=== PATIENT | female | born 1945 | race Caucasian/White ===

== ENCOUNTER → 2017-01-08 | Outpatient (CLI) | payer MEDICARE ==
[2013-12-14 11:04] VITALS: BP 141/65
[~2017-01-08] MED LIST: ALPR0.25 PO; AMLO10TA2 PO; AMLO10TA4 PO; ANAS1TAB3 PO; ASPI-630 PO; CALC-112 PO; CRESTOR10 MG PO; KRIL1CAP6 PO; LEVO112T4 PO; LEVO125T5 PO; LEVO137T3 PO; LISI10TA2 PO; METO-269 PO; METO50TA2 PO; SPIR100T PO; SPIR100T2 PO; TICA90TA PO; UBID100C26 PO; VITA400C36 PO
--- NOTE | 2017-01-08 12:44 | RAD ---
APPROVED REPORT Patient Location: OUT-PATIENT Indications PAD VELOCITY AND DOPPLER WAVEFORM ANALYSIS RIGHT cm/secWaveformSeverity LEFT c m/secWaveformSeverity Ext Iliac Art. 163.0BiphasicExt Iliac Art. 162.0Biphasic pCFA 137.0BiphasicpCFA 140.0Biphasic dCFA 113.0BiphasicdCFA 144.0Biphasic Prof Fem Art. 91.0BiphasicProf Fem Art. 94.0Biphasic Fem Art Prox. 103.0BiphasicFem Art Prox. 148.0Biphasic Fem Art Mid. 114.0BiphasicFem Art Mid. 123.0Biphasic Fem Art Dist. 116.0BiphasicFem Art Dist. 121.0Biphasic Pop Art(AK) 83.0BiphasicPop Art(AK) 101.0Biphasic Pop Art(BK) 130.0BiphasicPop Art(BK) 82.0Biphasic CASINO CAGE MANAGER Prox. 98.0BiphasicPTA Prox. 93.0Biphasic CASINO CAGE MANAGER Dist. 114.0BiphasicPTA Dist. 79.0Biphasic Per Art Mid. 70.0BiphasicPer Art Mid. 66.0Biphasic APOLLO Prox. 69.0BiphasicATA Prox. 75.0Biphasic Findings On the right side extending from the iliac vessels to the popliteal segments there are biphasic wavef orms on the spectral tracings. Velocities are grossly normal and no elevation or deceleration is note d to suggest significant stenosis. The below-knee vessels are patent with three-vessel runoff and bip hasic waveforms. On the left side extending from the iliac vessels to the popliteal segments there biphasic waveforms on the spectral tracings. Velocities again are grossly normal and no acceleration or deceleration is noted to suggest significant stenosis. The below-knee vessels are again patent with three-vessel runo ff and biphasic waveforms. Critical Notification Critical Value: No <Conclusion> 1. No flow-limiting disease in the bilateral lower extremity arterial system.
--- NOTE | 2017-01-08 13:24 | CARD ---
APPROVED REPORT EXAM: Two-dimensional and M-mode echocardiogram with Doppler and color Doppler. Other Information Quality : GoodHR: 50bpm Rhythm : Bradycardia INDICATION Cardiac Disease: CAD 2D DIMENSIONS RVDd3.2 (2.9-3.5cm)Left Atrium(2D)4.1 (1.6-4.0cm) IVSd1.1 (0.7-1.1cm)Aortic Root(2D)3.0 (2.0-3.7cm) LVDd4.6 (3.9-5.9cm)LVOT Diameter2.1 (1.8-2.4cm) PWd1.3 (0.7-1.1cm)LVDs2.8 (2.5-4.0cm) FS (%) 38.9 %SV65.8 ml LVEF(%)69.3 (>50%) Aortic Valve AoV Peak Jose Rafael.249.5cm/sAoV VTI66.4cm AO Peak GR.24.9mmHgLVOT Peak Jose Rafael.99.6cm/s AO Mean GR.13mmHgAVA (VMAX)1.43cm2 Mitral Valve MV E Mjxuoken525.1cm/sMV E Peak Gr.6mmHg MV DECEL JVMW146giYX A Tsepulue010.0cm/s MV E Mean Gr.2mmHgE/A Ratio0.9 MV A Xsairfxq080th Pulmonary Valve PV Peak Ahtwirog692.3cm/s Tricuspid Valve TR P. Wiikqxhg818cm/sTR Peak Gr.44mmHg Pulmonary Vein S1 Dbhzrdnm75.6cm/sD2 Rcjukpox68.5cm/s PVa dimpvpvj91irkb LEFT VENTRICLE The left ventricle is normal size. There is mild concentric left ventricular hypertrophy. The left ve ntricular systolic function is normal. The Ejection Fraction is 65-70%. There is normal LV segmental wall motion. Transmitral Doppler flow pattern is Grade I-abnormal relaxation pattern. RIGHT VENTRICLE The right ventricle is normal size. There is normal right ventricular wall thickness. The right ventr icular systolic function is normal. ATRIA The left atrium is moderately dilated. The right atrium size is normal. The interatrial septum is int act with no evidence for an atrial septal defect or patent foramen ovale as noted on 2-D or Doppler i yuliya. AORTIC VALVE The aortic valve is mildly sclerotic. The aortic valve is trileaflet. Doppler and Color Flow revealed no significant aortic regurgitation. There is no significant aortic valvular stenosis. MITRAL VALVE Mitral annular calcification is moderate. The mitral valve leaflets are thickened. There is no eviden ce of mitral valve prolapse. There is no mitral valve stenosis. Doppler and Color Flow revealed mild mitral regurgitation. TRICUSPID VALVE Doppler and Color Flow revealed mild tricuspid regurgitation. The pulmonary artery systolic pressure is estimated at 48 mmHg. There is moderate pulmonary hypertension. PULMONIC VALVE The pulmonary valve is not well visualized but appears to opens well. Doppler and Color Flow revealed no pulmonic valvular regurgitation. There is no pulmonic valvular stenosis by spectral Doppler. GREAT VESSELS The aortic root is normal in size. The ascending aorta is normal in size. The pulmonary artery is nor mal. The IVC is normal in size and collapses >50% with inspiration. PERICARDIAL EFFUSION There is no evidence of significant pericardial effusion. Critical Notification Critical Value: No <Conclusion> The left ventricular systolic function is normal. The Ejection Fraction is 65-70%. There is normal LV segmental wall motion. Mild mitral regurgitation. Mild tricuspid regurgitation. The pulmonary artery systolic pressure is estimated at 48 mmHg. There is moderate pulmonary hypertension. There is no evidence of significant pericardial effusion.
== END | disposition home or self-care (01) ==
LOC: ECHO 10:52
PROVIDERS: ATTEND Internal Medicine Cardiovascular Disease
DX: I08.1 Rheumatic disorders of both mitral and tricuspid valves (principal); I27.2 Other secondary pulmonary hypertension
CPT/HCPCS: 93306; 93925

== ENCOUNTER → 2017-07-27 | Outpatient (CLI) | payer MEDICARE ==
[2017-07-27] MEDS: REGADENOSON 0.4 MG/5 ML DISP.SYRIN. IV (10:25)
== END | disposition home or self-care (01) ==
LOC: NM 08:34
DX: I25.10 Atherosclerotic heart disease of native coronary artery without angina pectoris (principal); I10 Essential (primary) hypertension; Z79.01 Long term (current) use of anticoagulants; Z85.3 Personal history of malignant neoplasm of breast
CPT/HCPCS: 78452; 93017; 96374; 96375; 96376; A9500; J2785

== ENCOUNTER → 2017-11-13 | Outpatient (CLI) | payer MEDICARE | END | disposition home or self-care (01) | LOC: KCIC MRI 13:38 | DX: M51.36 Other intervertebral disc degeneration, lumbar region (principal); M48.061 Spinal stenosis, lumbar region without neurogenic claudication | CPT/HCPCS: 72148 ==

== ENCOUNTER → 2018-07-14 | Outpatient (CLI) | payer MEDICARE ==
[2013-12-14 11:04] VITALS: BP 141/65
[~2018-07-14] MED LIST changes: -AMLO10TA2 PO; +AMLO10TA8 PO; -ANAS1TAB3 PO; +ANAS1TAB47 PO; +CLOP75TA57 PO; -METO50TA2 PO; +METO50TA6 PO; -SPIR100T2 PO; +SPIR100T4 PO
[2018-07-14 09:57] LABS: CHOLESTEROL/HDL RATIO 3.1
== END | disposition home or self-care (01) ==
LOC: LAB 09:03
PROVIDERS: ATTEND Internal Medicine Cardiovascular Disease
DX: E78.5 Hyperlipidemia, unspecified (principal)
CPT/HCPCS: 36415; 80061

== ENCOUNTER → 2018-07-15 | Outpatient (CLI) | payer MEDICARE ==
[2013-12-14 11:04] VITALS: BP 141/65
--- NOTE | 2018-07-15 09:56 | CARD ---
MR#: [id number] Date of Study: 07/15/2018 Ordering Physician: RIVER TORRES, Referring Physician: RIVER TORRES Tech: Ludmila Padilla RDCS APPROVED REPORT EXAM: Two-dimensional and M-mode echocardiogram with Doppler and color Doppler. Other Information Quality : AverageHR: 55bpm Rhythm : NSR INDICATION CAD 2D DIMENSIONS RVDd4.0 (2.9-3.5cm)Left Atrium(2D)4.5 (1.6-4.0cm) IVSd1.2 (0.7-1.1cm)Aortic Root(2D)2.4 (2.0-3.7cm) LVDd3.0 (3.9-5.9cm)LVOT Diameter1.9 (1.8-2.4cm) PWd1.4 (0.7-1.1cm)LVDs2.1 (2.5-4.0cm) FS (%) 29.3 %SV20.2 ml LVEF(%)57.7 (>50%) M-Mode DIMENSIONS Left Atrium(MM)4.33 (2.5-4.0cm)Aortic Root3.03 (2.2-3.7cm) Aortic Valve AoV Peak Jose Rafael.242.3cm/sAoV VTI69.2cm AO Peak GR.23.5mmHgLVOT Peak Jose Rafael.88.0cm/s AO Mean GR.15mmHgAVA (VMAX)1.07cm2 NAMITA (VTI)1.10cm2 Mitral Valve MV E Lnfkvjgr190.8cm/sMV E Peak Gr.8mmHg MV DECEL KZNT221iqII A Giqekgkd552.1cm/s MV E Mean Gr.2mmHgE/A Ratio1.1 MV A Mfllcpxk654cs Pulmonary Valve PV Peak Zneimcpm65.6cm/s Tricuspid Valve TR P. Pjvmniza347so/sRAP EAXXDGAE2evZm TR Peak Gr.60fzPyVHYB82vhTa LEFT VENTRICLE The left ventricle cavity is small. There is mild concentric left ventricular hypertrophy. The left v entricular systolic function is normal and the ejection fraction is within normal range. The Ejection Fraction is 55-60%. There is normal LV segmental wall motion. Transmitral Doppler flow pattern is Gr fatuma II-pseudonormal filling dynamics. RIGHT VENTRICLE The right ventricle is mildly dilated. There is normal right ventricular wall thickness. The right ve ntricular systolic function is normal. ATRIA The left atrium is mildly dilated. The right atrium is mildly dilated. The interatrial septum is inta ct with no evidence for an atrial septal defect or patent foramen ovale as noted on 2-D or Doppler im aging. AORTIC VALVE The aortic valve is trileaflet. The aortic valve is moderately calcified. Doppler and Color Flow reve aled no significant aortic regurgitation. There is mild aortic stenosis. MG 15 mm Hg. MITRAL VALVE Mitral annular calcification is moderate. There is no evidence of mitral valve prolapse. Calculated m itral valve area is 1.6 cm2 with maximum pressure gradient of 9 mmHg and mean pressure gradient of 2. 6 mmHg. Doppler and Color-flow revealed trace mitral regurgitation. TRICUSPID VALVE The tricuspid valve is normal in structure and function. Doppler and Color Flow revealed mild to mode rate tricuspid regurgitation. There is moderate pulmonary hypertension. The PA pressure was estimated at 50 mmHg. There is no tricuspid valve prolapse or vegetation. There is no tricuspid valve stenosis . PULMONIC VALVE Pulmonic valve not well visualized. GREAT VESSELS The aortic root is normal in size. The ascending aorta is normal in size. The IVC is normal in size a nd collapses >50% with inspiration. PERICARDIAL EFFUSION There is no evidence of significant pericardial effusion. Critical Notification Critical Value: No <Conclusion> The left ventricular systolic function is normal and the ejection fraction is within normal range. Th e Ejection Fraction is 55-60%. There is normal LV segmental wall motion. There is mild aortic stenosis. MG 15 mm Hg. Doppler and Color Flow revealed mild to moderate tricuspid regurgitation. There is moderate pulmonary hypertension. The PA pressure was estimated at 50 mmHg. Signed by : Jose A Hunt, Electronically Approved : 07/15/2018 09:56:16
--- NOTE | 2018-07-15 14:02 | RAD ---
MR#: [id number] Date of Study: 07/15/2018 Ordering Physician: RIVER TORRES, Referring Physician: RIVER TORRES, Tech: APPROVED REPORT Patient Location: OUT-PATIENT Indications PAD VELOCITY AND DOPPLER WAVEFORM ANALYSIS RIGHT cm/secWaveformSeverity LEFT cm/secWaveform Severity pCFA 193.2BiphasicpCFA 157.8Biphasic Prof Fem Art. 101.8BiphasicProf Fem Art. 101.2Biphasic Fem Art Prox. 111.1BiphasicFem Art Prox. 137.9Biphasic Fem Art Mid. 102.7BiphasicFem Art Mid. 96.2Biphasic Fem Art Dist. 137.9BiphasicFem Art Dist. 121.2Biphasic Pop Art(Fossa) 86.1BiphasicPop Art(AK) 113.8Biphasic APARTMENT MAINTENANCE TECHNICIAN Dist. 108.3BiphasicPTA Dist. 86.1Biphasic Per Art Dist.63.6BiphasicPer Art Dist.84.2Biphasic APOLLO Dist. 69.4BiphasicATA Dist. 66.6Biphasic Findings Mild bilateral FURNITURE DECALS INSPECTOR velocity increase, likely less than 50% stenosis. Mostly biphasic waveforms throughout the arterial tree in the LE. Three vessel run-off below the knee. No focal stenosis. Critical Notification Critical Value: No <Conclusion> No focal stenosis noted. Signed by : Jose A Hunt, Electronically Approved : 07/15/2018 14:02:17
== END | disposition home or self-care (01) ==
LOC: ECHO 08:51
PROVIDERS: ATTEND Internal Medicine Cardiovascular Disease
DX: I25.10 Atherosclerotic heart disease of native coronary artery without angina pectoris (principal); I08.2 Rheumatic disorders of both aortic and tricuspid valves; I27.20 Pulmonary hypertension, unspecified
CPT/HCPCS: 93306; 93925

== ENCOUNTER → 2018-08-10 | Outpatient (CLI) | payer MEDICARE ==
[2013-12-14 11:04] VITALS: BP 141/65
[~2018-08-10] MED LIST changes: +REGADENOSON 0.4 MG/5 ML DISP.SYRIN. IV ONE
--- NOTE | 2018-08-10 12:58 | RAD ---
MR#: [id number] Date of Study: 08/10/2018 Ordering Physician: RIVER TORRES, Referring Physician: MARTY PAYTON Tech: KERI Priest APPROVED REPORT Test Type: Pharmacological Stress Nurse/Tech: Sol Dalton R.N. Test Indications: CAD, SOA Cardiac History: [place], PTCA,htn Medications: See Electronic Medical Record Medical History: See Electronic Medical Record Resting ECG: SB . has very flat T waves and even inverted T wave in leads III,AVF,V3,V4 Resting Heart Rate: 50 bpm Resting Blood Pressure: 149/64mmHg Pretest Chest Pain: No chest pain Nurse/Tech Notes S1S2, murmur, lungs CTA Consent: The procedure was explained to the patient in lay terms. Informed consent was witnessed. Juan eout was entered into [employer]-SIM. History and Stress Test performed by KRISTOPHER Lopez, KAREN (R) (N) Pharm. Details Pharmacologic stress testing was performed using 0.4mg per 5ml of regadenoson given intravenously ove r 7-10 seconds. Stress Symptoms SOA, stomach cramps, h/a POST EXERCISE Reason for Termination: Infusion complete Max HR: 70 bpm Max Blood Pressure: 151/60mmHg Blood Pressure response to exercise: Normal blood pressure response during stress. Heart Rate response to exercise: wnl Chest Pain: No. Arrhythmia: No. ST Change: No. INTERPRETATION Stress EKG Conclusion: Baseline EKG showed sinus rhythm. No ischemic changes at peak stress. No arr hythmias. Imaging Protocol IMAGE PROTOCOL: Rest Tc-99m/stress Tc-99m 1 day Rest: Stress: Viability: Radiopharm.Tc99m DcvjbipyoOz29c Sestamibi Oiic75uBa 33mCi Duration 16min. 13min. Img Date 08/10/2018 08/10/2018 Inj-Img Orxy18fwk. 60min. Rest Admin Site:IV - Left AntecubitalAdministrator:KRISTOPHER Lopez, KAREN (R)(N) Stress Admin Site: IV - Left AntecubitalAdministrator: Adrienne Mcguire, NMTCB, ARRT (R)(N) STRESS DATA End Diast. Vol.96.0mlLVEDV index BSA52.0ml End Syst. Vol.23.0mlLVESV index BSA12.0ml Myocardial Swcj506.0gEject. Wxjoddcq33.0% Stress Scores Regional WT0.00Summed WT7.00 Regional WM0.00Summed WM0.00 Study quality was good. Left Ventricular size was Normal at Rest and Stress. Lung uptake was . Left Ventricular ejection fraction is 76%. The rest and stress images show normal perfusion, normal contraction and thickening. LV Perf. Quant 17 Seg. SSS1.00 17 Seg. SRS1.00 17 Seg. SDS1.00 Stress Defect Extent (% LAD)2.50Rest Defect Extent (% LAD)5.60Rev. Defect Extent (% LAD)0.00 Stress Defect Extent (% LCX) 0.00Rest Defect Extent (% LCX)0.00Rev. Defect Extent (% LCX)0.00 Stress Defect Extent (% RCA)0.00Rest Defect Extent (% RCA)0.00Rev. Defect Extent (% RCA)0.00 Stress Defect Extent (% DENI)1.50Rest Defect Extent (% DENI)3.30Rev. Defect Extent (% DENI)0.00 Conclusion 1. Regadenoson cardioisotope stress test did not show any evidence of ischemia or infarct. 2. Normal left ventricular systolic function with ejection fraction calculated at 76%. 3. Low risk for cardiac events. Signed by : River Torres, Electronically Approved : 08/10/2018 12:57:54
== END | disposition home or self-care (01) ==
LOC: NM 09:12
PROVIDERS: ATTEND Internal Medicine Cardiovascular Disease
DX: I25.10 Atherosclerotic heart disease of native coronary artery without angina pectoris (principal)
CPT/HCPCS: 78452; 93017; 96374; A9500; J2785

== ENCOUNTER → 2019-11-21 | Outpatient (CLI) | payer MEDICARE ==
[2013-12-14 11:04] VITALS: BP 141/65
[~2019-11-21] MED LIST changes: +LEVO100T5 PO; -LEVO112T4 PO; +LEVO112T49 PO; +METO25TA4 PO; -REGADENOSON 0.4 MG/5 ML DISP.SYRIN. IV ONE; +VITA-8 PO; -VITA400C36 PO
--- NOTE | 2019-11-21 11:03 | CARD ---
MR#: [id number] Date of Study: 11/21/2019 Ordering Physician: RIVER TORRES, Referring Physician: RIVER TORRES Tech: Latonya Watkins RDCS APPROVED REPORT EXAM: Two-dimensional and M-mode echocardiogram with Doppler and color Doppler. Other Information Quality : Good INDICATION Cardiac Disease: CAD 2D DIMENSIONS RVDd2.8 (2.9-3.5cm)Left Atrium(2D)4.3 (1.6-4.0cm) IVSd1.2 (0.7-1.1cm)Aortic Root(2D)2.3 (2.0-3.7cm) LVDd4.1 (3.9-5.9cm)LVOT Diameter2.0 (1.8-2.4cm) PWd1.2 (0.7-1.1cm)LVDs2.7 (2.5-4.0cm) FS (%) 33.5 %SV45.6 ml Aortic Valve AoV Peak Jose Rafael.333.4cm/sAoV VTI81.7cm AO Peak GR.44.5mmHgLVOT Peak Jose Rafael.113.5cm/s AO Mean GR.24mmHgAVA (VMAX)1.04cm2 NAMITA (VTI)1.60cm2 Mitral Valve MV E Pklhptfn414.1cm/sMV DECEL TOEI401qz MV A Emkdekhd107.8cm/sE/A Ratio1.1 Tricuspid Valve TR P. Ircfgsmx389iu/sRAP IJXFPRCS7akWb TR Peak Gr.15udCpYGII71naGq Pulmonary Vein S1 Ncprsnvq41.8cm/sD2 Tqdvehzt44.8cm/s LEFT VENTRICLE The left ventricle is normal size. There is mild concentric left ventricular hypertrophy. The left ve ntricular systolic function is normal and the ejection fraction is within normal range. The Ejection Fraction is 55-60%. There is normal LV segmental wall motion. RIGHT VENTRICLE The right ventricle is normal size. The right ventricular systolic function is normal. ATRIA The left atrium is mildly dilated. The right atrium size is normal. The interatrial septum is intact with no evidence for an atrial septal defect or patent foramen ovale as noted on 2-D or Doppler imagi ng. AORTIC VALVE The aortic valve is calcified and displays decreased opening. Doppler and Color Flow revealed no sign ificant aortic regurgitation. Doppler and color-flow analysis revealed mild aortic stenosis. MITRAL VALVE The mitral valve is thickened but opens well. Posterior mitral annular calcification is severe. There is no evidence of mitral valve prolapse. There is no mitral valve stenosis. Doppler and Color-flow r evealed mild to moderate mitral regurgitation. TRICUSPID VALVE The tricuspid valve is normal in structure and function. Doppler and Color Flow revealed moderate tri cuspid regurgitation. The PA pressure was estimated at 52 mmHg. There is no tricuspid valve stenosis. PULMONIC VALVE The pulmonary valve is normal in structure and function. Doppler and Color Flow revealed no pulmonic valvular regurgitation. There is no pulmonic valvular stenosis. GREAT VESSELS The aortic root is normal in size. The ascending aorta is not well seen. The IVC is normal in size an d collapses >50% with inspiration. PERICARDIAL EFFUSION There is no evidence of significant pericardial effusion. Critical Notification Critical Value: No <Conclusion> The left ventricle is normal size. The left ventricular systolic function is normal and the ejection fraction is within normal range. The Ejection Fraction is 55-60%. There is mild concentric left ventricular hypertrophy. Doppler and Color Flow revealed no significant aortic regurgitation. Doppler and color-flow analysis revealed mild aortic stenosis. Doppler and Color-flow revealed mild to moderate mitral regurgitation. Doppler and Color Flow revealed moderate tricuspid regurgitation. The PA pressure was estimated at 52 mmHg. Signed by : Crescencio Skelton MD Electronically Approved : 11/21/2019 11:03:30
== END | disposition home or self-care (01) ==
LOC: ECHO 09:39
PROVIDERS: ATTEND Internal Medicine Cardiovascular Disease
DX: I08.3 Combined rheumatic disorders of mitral, aortic and tricuspid valves (principal); I25.10 Atherosclerotic heart disease of native coronary artery without angina pectoris
CPT/HCPCS: 93306

== ENCOUNTER → 2020-07-02 | Outpatient (CLI) | payer MEDICARE ==
[2020-05-18 16:04] VITALS: BP 143/54
[~2020-07-02] MED LIST changes: +AMLO-187 PO; -AMLO10TA8 PO; +ASPI81TA59 PO; +LISI10TA16 PO; -LISI10TA2 PO; +METO25TA2 PO; +NITR0.4T24 SL; +UBID200C7 PO; +VITA400C37 PO
[2020-07-02 08:51] LABS: CHOLESTEROL/HDL RATIO 2.9
--- NOTE | 2020-07-04 14:20 | RAD ---
MR#: [id number] Date of Study: 07/02/2020 Ordering Physician: RIVER OTRRES, Referring Physician: RIVER TORRES, Tech: Ed Stevenson MBA, RDMS, RVT, RDCS, RTR APPROVED REPORT Patient Location: OUT-PATIENT Indications AAA Grayscale images of the abdominal aorta demonstrates moderate diffuse plaque with greatest diameter o f 2.1 cm in the midsegment. Velocities at the aortic bifurcation are grossly within normal limits. Overall no significant stenosis, dissection, aneurysm identified. Risk Factors PAD Family History: Duplex Results A/PTransverseLongitudinal Proximal Aorta 1.7cm1.7cm Mid Aorta 1.7cm1.9cm Distal Aorta 1.2cm1.3cm Rt. Common Iliac Artery.89cm Lt. Common Iliac Artery .82cm Doppler VelocityWaveform Proximal Aorta 80.0 cm/sec Aorta Mid. 112.0 cm/sec Distal Aorta 127.0 cm/sec Critical Notification Critical Value: No <Conclusion> 1. No evidence of abdominal aortic aneurysm. There is moderate diffuse atherosclerosis noted. Signed by : Jose A Hunt, Electronically Approved : 07/02/2020 11:15:17
--- NOTE | 2020-07-04 14:20 | RAD ---
MR#: [id number] Date of Study: 07/02/2020 Ordering Physician: RIVER TORRES, Referring Physician: RIVER TORRES, Tech: Ed Stevenson MBA, RDMS, RVT, RDCS, RTR APPROVED REPORT Patient Location: OUT-PATIENT Laterality:Bilateral Indications Dizziness and Vertigo Doppler Spectral Velocity Analysis Right Left pCCA 84/13 cm/spCCA 112/20 cm/s mCCA 78/16 cm/smCCA 95/20 cm/s dCCA 74/17 cm/sdCCA 74/17 cm/s Bulb 76/14 cm/sBulb 65/15 cm/s ECA 113/ cm/sECA 84/ cm/s pICA 65/19 cm/spICA 108/25 cm/s Charline 75/24 cm/smICA 70/16 cm/s dICA 96/27 cm/sdICA 88/18 cm/s Vert. 38/ cm/sVert. 48/ cm/s Subcl. 72/ cm/sSubcl. 100/ cm/s ICA/CCA 1.14ICA/CCA 0.96 Findings Grayscale images of the bilateral common carotid, external and internal carotid vessels demonstrates mild diffuse intimal hyperplasia with moderate plaquing of the bilateral carotid bulbs extending into the internal carotid arteries. Based on velocity criteria overall 0 to less than 50% stenosis in th e bilateral internal carotid arteries. Vertebral velocities are within normal limits and antegrade. Normal ICA to CCA ratios bilaterally. Critical Notification Critical Value: No <Conclusion> 1. Mild carotid disease bilaterally Signed by : Jose A Hunt, Electronically Approved : 07/02/2020 11:18:21
--- NOTE | 2020-07-04 14:20 | RAD ---
MR#: [id number] Date of Study: 07/02/2020 Ordering Physician: RIVER TORRES, Referring Physician: RIVER TORRES, Tech: Ed Stevenson MBA, RDMS, RVT, RDCS, RTR APPROVED REPORT Patient Location: OUT-PATIENT Indications PAD VELOCITY AND DOPPLER WAVEFORM ANALYSIS RIGHT cm/secWaveformSeverity LEFT cm/secWaveform Severity dCFA 160.0BiphasicdCFA 156.0Biphasic Prof Fem Art. 55.0BiphasicProf Fem Art. 97.0Biphasic Fem Art Prox. 137.0BiphasicFem Art Prox. 162.0Biphasic Fem Art Mid. 122.0BiphasicFem Art Mid. 129.0Biphasic Fem Art Dist. 101.0BiphasicFem Art Dist. 138.0Biphasic Pop Art(Fossa) 95.0BiphasicPop Art(AK) 75.0Biphasic BATH STEWARD/STEWARDESS Prox. 93.0BiphasicPTA Prox. 123.0Biphasic BATH STEWARD/STEWARDESS Dist. 122.0BiphasicPTA Dist. 164.0Biphasic Per Art Mid. 62.0MonophasicPer Art Mid. 76.0Monophasic APOLLO Prox. 97.0BiphasicATA Prox. 93.0Biphasic DPA 85BiphasicDPA 71Biphasic Findings Grayscale images the bilateral lower extremity arterial vessels reveals mild to moderate diffuse athe rosclerotic plaquing without any focal obstruction. Based on spectral waveforms and velocities from the common femoral artery to the popliteal segment no critical stenosis identified with biphasic wave forms. Below the knee there is three-vessel runoff with probable moderate bilateral posterior tibial disease. The peroneal artery velocities are monophasic but adequate. No significant anterior tibia l disease noted. Critical Notification Critical Value: No <Conclusion> 1. Mild lower extremity arterial disease without any critical focal obstruction with three-vessel ru noff bilaterally Signed by : Jose A Hunt, Electronically Approved : 07/02/2020 11:10:00
== END ==
LOC: US 13:14
PROVIDERS: ATTEND Internal Medicine Cardiovascular Disease
DX: I70.203 Unspecified atherosclerosis of native arteries of extremities, bilateral legs (principal); I25.10 Atherosclerotic heart disease of native coronary artery without angina pectoris; I70.0 Atherosclerosis of aorta; E78.5 Hyperlipidemia, unspecified; R42 Dizziness and giddiness
CPT/HCPCS: 36415; 76770; 80061; 93880; 93925

== ENCOUNTER → 2021-01-10 | Outpatient (CLI) | payer MEDICARE ==
[2020-05-18 16:04] VITALS: BP 143/54
[2021-01-10 11:10] LABS: CHOLESTEROL/HDL RATIO 2.4
--- NOTE | 2021-01-10 18:09 | CARD ---
MR#: [id number] Date of Study: 01/10/2021 Ordering Physician: RIVER TORRES, Referring Physician: RIVER TORRES, Tech: Lisette Parry [facility] APPROVED REPORT EXAM: Two-dimensional and M-mode echocardiogram with Doppler and color Doppler. Other Information Quality : AverageHR: 47bpm INDICATION Cardiac Disease: CAD RISK FACTORS Hypertension Hyperlipidemia 2D DIMENSIONS RVDd3.5 (2.9-3.5cm)Left Atrium(2D)4.0 (1.6-4.0cm) IVSd1.2 (0.7-1.1cm)Aortic Root(2D)2.4 (2.0-3.7cm) LVDd4.6 (3.9-5.9cm)LVOT Diameter1.9 (1.8-2.4cm) PWd1.1 (0.7-1.1cm)LVDs2.4 (2.5-4.0cm) FS (%) 47.3 %SV75.5 ml Aortic Valve AoV Peak Jose Rafael.219.5cm/sAoV VTI65.6cm AO Peak GR.19.3mmHgLVOT Peak Jose Rafael.82.5cm/s LVOT VTI 26.91cmAO Mean GR.12mmHg NAMITA (VMAX)0.07ph2KJR (VTI)1.22cm2 Mitral Valve MV E Qbuvtboo04.6cm/sMV DECEL TNPD949qe MV A Yyzybkjh73.0cm/sMV BAL71ig E/A Ratio1.1MVA (PHT)2.21cm2 TDI E/Lateral E'17.1E/Medial E'13.1 Pulmonary Valve PV Peak Rnsmvgad164.6cm/sPV Peak Grad.5mmHg Tricuspid Valve TR P. Hxjqfjsg942jg/sRAP ANWFHVAC9beCs TR Peak Gr.42obYmQFCQ26npNt Pulmonary Vein S1 Agpzdghu08.5cm/sPVa moujfzvi955binm LEFT VENTRICLE The left ventricle is normal size. There is mild concentric left ventricular hypertrophy. The left ve ntricular systolic function is normal and the ejection fraction is within normal range. The Ejection Fraction is 50-55%. There is normal LV segmental wall motion. Transmitral Doppler flow pattern is Gra de II-pseudonormal filling dynamics. RIGHT VENTRICLE The right ventricle is normal size. There is normal right ventricular wall thickness. The right ventr icular systolic function is normal. ATRIA The left atrium is mildly dilated. The right atrium size is normal. The interatrial septum is intact with no evidence for an atrial septal defect or patent foramen ovale as noted on 2-D or Doppler imagi ng. AORTIC VALVE The aortic valve is calcified and displays decreased opening. Doppler and Color Flow revealed no sign ificant aortic regurgitation. There is no significant aortic valvular stenosis. Calculated aortic suleiman ve area is 1.52 cm2 with maximum pressure gradient of 22 mmHg and mean pressure gradient of 13 mmHg. MITRAL VALVE The mitral valve is moderately thickened. There is no evidence of mitral valve prolapse. There is no mitral valve stenosis. Doppler and Color-flow revealed trace mitral regurgitation. TRICUSPID VALVE The tricuspid valve is normal in structure and function. Doppler and Color Flow revealed trace tricus pid regurgitation. There is no tricuspid valve stenosis. GREAT VESSELS The aortic root is normal in size. The IVC is normal in size and collapses >50% with inspiration. PERICARDIAL EFFUSION There is no evidence of significant pericardial effusion. Critical Notification Critical Value: No <Conclusion> The left ventricle is normal size. The left ventricular systolic function is normal and the ejection fraction is within normal range. The Ejection Fraction is 50-55%. There is normal LV segmental wall motion. There is mild concentric left ventricular hypertrophy. Doppler and Color Flow revealed no significant aortic regurgitation. There is no significant aortic valvular stenosis. Doppler and Color-flow revealed trace mitral regurgitation. Doppler and Color Flow revealed trace tricuspid regurgitation. Signed by : Crescencio Skelton MD Electronically Approved : 01/10/2021 18:09:19
== END ==
LOC: ECHO 09:18
PROVIDERS: ATTEND Internal Medicine Cardiovascular Disease
DX: I08.0 Rheumatic disorders of both mitral and aortic valves (principal); I25.10 Atherosclerotic heart disease of native coronary artery without angina pectoris; E78.5 Hyperlipidemia, unspecified
CPT/HCPCS: 36415; 80061; 93306

== ENCOUNTER → 2021-07-16 | Outpatient (CLI) | payer BC, MEDICARE ==
[2020-05-18 16:04] VITALS: BP 143/54
[~2021-07-16] MED LIST changes: +REGADENOSON 0.4 MG/5 ML DISP.SYRIN. IV ONE
--- NOTE | 2021-07-16 11:14 | RAD ---
MR#: [id number] Date of Study: 07/16/2021 Ordering Physician: RIVER TORRES, Referring Physician: RIVER TORRES, Tech: Ed Stevenson MBA, RDMS, RVT, RDCS, RTR APPROVED REPORT Patient Location: OUT-PATIENT Indications PAD VELOCITY AND DOPPLER WAVEFORM ANALYSIS RIGHT cm/secWaveformSeverity LEFT cm/secWaveform Severity dCFA 129.0BiphasicdCFA 150.0Biphasic Prof Fem Art. 74.0BiphasicProf Fem Art. 85.0Biphasic Fem Art Prox. 146.0BiphasicFem Art Prox. 137.0Biphasic Fem Art Mid. 121.0BiphasicFem Art Mid. 130.0Biphasic Fem Art Dist. 100.0BiphasicFem Art Dist. 145.0Biphasic Pop Art(Fossa) 81.0BiphasicPop Art(AK) 74.0Biphasic ALARM OPERATOR Prox. 87.0BiphasicPTA Prox. 86.0Biphasic ALARM OPERATOR Dist. 100.0BiphasicPTA Dist. 101.0Biphasic Per Art Mid. 72.0BiphasicPer Art Mid. 61.0Biphasic APOLLO Prox. 90.0BiphasicATA Prox. 54.0Biphasic DPA 64BiphasicDPA 34Biphasic Findings Grayscale images of the bilateral lower extremity arterial vessels demonstrates no significant athero sclerotic plaque. Spectral waveforms are mostly biphasic without any high-grade obstruction. There is three-vessel runoff below the knee Critical Notification Critical Value: No <Conclusion> 1. No significant bilateral lower extremity arterial disease Signed by : Jose A Hunt, Electronically Approved : 07/16/2021 11:14:17
--- NOTE | 2021-07-16 18:38 | RAD ---
MR#: [id number] Date of Study: 07/16/2021 Ordering Physician: RIVER TORRES, Referring Physician: MARTY PAYTON Tech: RT Fred Roblero) (N) APPROVED REPORT Test Type: Pharmacological Stress Nurse/Tech: ELDER RODRIGUEZ Test Indications: CAD Cardiac History: CAD, HTN, NV- STENT SEE EMR Medications: SEE EMR Medical History: BREAST CA- LUMPECTOMY/CHEMO Resting ECG: SB Resting Heart Rate: 45 bpm Resting Blood Pressure: 163/60mmHg Pretest Chest Pain: No chest pain Nurse/Tech Notes S1,S2, KAREL, LUNGS CTA, DENIED ANY CHEST PAIN OR SHORTNESS OF BREATH. PT C/O OF FATIGUE- CURRENTLY I N TREATMENT FOR BREAST CANCER. Consent: The procedure was explained to the patient in lay terms. Informed consent was witnessed. Juan eout was entered into [employer]. History and Stress Test performed by RT Tracie HahnR) (N) Pharm. Details Pharmacologic stress testing was performed using 0.4mg per 5ml of regadenoson given intravenously ove r 7-10 seconds. Stress Symptoms PT C/O OF SHORTNESS OF BREATH DURING INITIATION OF TESTING, PT ALSO STATED SHE HAD A HEADACHE. VSS. P T TOLERATED FAIRLY WELL. POST EXERCISE Reason for Termination: Infusion complete Max HR: 61 bpm Max Blood Pressure: 140/52mmHg Blood Pressure response to exercise: Normal blood pressure response during stress. Heart Rate response to exercise: WNL Chest Pain: No. Arrhythmia: . NO SIGNIFICANT CHANGES NOTED FROM BASELINE EKG. INTERPRETATION Stress EKG Conclusion: No evidence of stress induced EKG changes. Imaging Protocol IMAGE PROTOCOL: Rest Tc-99m/stress Tc-99m 1 day Rest: Stress: Viability: Radiopharm.Tc99m ElzqygellQr36i Sestamibi [id number] 33mCi Duration 15min. 15min. Img Date 07/16/2021 07/16/2021 Inj-Img Vixy43zgs. 60min. Rest Admin Site:IV - Left AntecubitalAdministrator:RT Fred Roblero)(N) Stress Admin Site: IV - Left AntecubitalAdministrator: Bety Hicks, RT (R)(N) STRESS DATA End Diast. Vol.91.0mlAv. Heart Rate48.0bpm End Syst. Vol.21.0mlCO Index BSA0.0L/min Myocardial Vviy464.0gEject. Cwynyadu82.0% Stress Rates Pk. Fill Rate2.00EDV/secLVtime Pk. Fill 242.84msec Pk. Empty Rate3.21ESV/secLVtime Pk. Tvztr505.25msec 06/03 Pk. Fill1.20EDV/sec Stress Scores Regional WT0.00Summed WT0.00 Regional WM0.00Summed WM0.00 The rest and stress images show normal perfusion, normal contraction and thickening. LV Perf. Quant 17 Seg. SSS4.00 17 Seg. SRS5.00 17 Seg. SDS2.00 Stress Defect Extent (% LAD)8.10Rest Defect Extent (% LAD)10.00Rev. Defect Extent (% LAD)0.00 Stress Defect Extent (% LCX) 0.00Rest Defect Extent (% LCX)0.00Rev. Defect Extent (% LCX)0.00 Stress Defect Extent (% RCA)15.60Rest Defect Extent (% RCA)4.40Rev. Defect Extent (% RCA)15.60 Stress Defect Extent (% DENI)6.50Rest Defect Extent (% DENI)8.50Rev. Defect Extent (% DENI)3.00 Other Information Quality:Good Risk Assessment: Low Risk Conclusion 1. No evidence of EKG changes with stress testing. 2. Normal perfusion at stress/rest. 3. Low risk study. 4. EF > 60%. Signed by : Jose A Hunt, Electronically Approved : 07/16/2021 18:38:08
== END ==
LOC: NM 07:57
PROVIDERS: ATTEND Internal Medicine Cardiovascular Disease
DX: I73.9 Peripheral vascular disease, unspecified (principal); I25.10 Atherosclerotic heart disease of native coronary artery without angina pectoris
CPT/HCPCS: 78452; 93017; 93925; A9500; J2785